=== PATIENT | male | born 2000 | race Two or more races ===

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

== ENCOUNTER 2019-07-10 18:30 | Emergency (ER) | payer OTHER ==
[2019-07-10 18:53] LABS: RAPID STREP SCREEN Negative (Negative)
--- NOTE | 2019-07-10 19:53 | ED Physician Documentation ---
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 He is been sick for 4 days with body aches, runny nose, sore throat and dry cough. No shortness of breath.) Review of Systems Constitutional: reports: Fever, Chills, Myalgias, Fatigue Ears: denies: Ear pain Nose: reports: Rhinorrhea / runny nose Throat: reports: Sore throat Respiratory: reports: Cough. denies: Dyspnea GI: reports: Diarrhea (mild). denies: Vomiting PD PAST MEDICAL HISTORY - Past Medical History Past Medical History: Yes - Past Surgical History Past Surgical History: No - Present Medications Home Medications: Ambulatory Orders Medication Instructions Recorded Confirmed Ibuprofen [Motrin] 800 mg PO Q8H PRN #30 tablet 07/10/19 - Allergies Allergies/Adverse Reactions: Allergies Allergy/AdvReac Type Severity Reaction Status Date / Time No Known Drug Allergies Allergy Verified 09/17/18 17:31 - Social History Does the pt smoke?: No Smoking Status: Never smoker - Immunizations Immunizations are current?: Yes - POLST Patient has POLST: No PD ED PE NORMAL - Vitals Vital signs reviewed: Yes - General General: Alert and oriented X 3, No acute distress - HEENT HEENT: PERRL, EOMI, Ears normal, Moist mucous membranes, Pharynx benign - Neck Neck: Supple, no meningeal sign, No bony TTP - Cardiac Cardiac: RRR, No murmur - Respiratory Respiratory: No respiratory distress, Clear bilaterally - Abdomen Abdomen: Non tender - Back Back: No CVA TTP, No spinal TTP - Derm Derm: Normal color, Warm and dry - Neuro Neuro: Alert and oriented X 3, Normal speech Results - Vitals Vitals: Vital Signs - 24 hr 07/10/19 18:32 Temperature 37.9 C H Heart Rate 100 Respiratory 17 Rate Blood Pressure 135/81 H O2 Saturation 98 Oxygen O2 Source Room air - Labs Labs: Laboratory Tests 07/10/19 18:37 Group A Strep Rapid Negative PD MEDICAL DECISION MAKING - ED course ED course: This is a young man with clinical influenza, and we are having an ongoing outbreak. I am not testing him for the influenza virus specifically because he is at 4 days of illness and Tamiflu treatments would not be effective at this juncture. Continued conservative care was advised and he needs a work note for tomorrow. Departure - Departure Disposition: 01 Home, Self Care Clinical Impression: Influenza Condition: Good Record reviewed to determine appropriate education?: Yes Instructions: ED Flu Prescriptions: Ibuprofen [Motrin] 800 mg PO Q8H PRN #30 tablet PRN Reason: PAIN &/OR FEVER Comments: Return at the end of the weekend if not improved, follow-up with your doctor next week. Return anytime if worse. Forms: Activity restrictions
[2019-07-10 20:02] VITALS: BP 125/82
== END 2019-07-10 20:01 | disposition home or self-care (01) ==
LOC: ED 18:30
DX: J11.1 Influenza due to unidentified influenza virus with other respiratory manifestations (principal)
CPT/HCPCS: 87070; 87430; 99283

== ENCOUNTER 2020-06-26 16:24 | Emergency (ER) | payer OTHER ==
[2020-06-26 16:30] VITALS: BP 105/59
--- NOTE | 2020-06-26 17:03 | XRAY Report ---
PROCEDURE: Ankle 3 View RT INDICATIONS: Trauma TECHNIQUE: 3 views of the ankle were acquired. COMPARISON: None. FINDINGS: Bones: No fractures or dislocations. Ankle mortise is normally aligned. No suspicious bony lesions . Soft tissues: Swelling at the lateral malleolus. No tibiotalar joint effusion. Achilles tendon appe ars normal. IMPRESSION: No acute osseous abnormality. Swelling at the lateral malleolus. Reviewed by: Aldair Hdez MD on 06/26/2020 4:02 PM [facility] Approved by: Aldair Hdez MD on 06/26/2020 4:02 PM [facility] Station ID: [id number]
--- NOTE | 2020-06-26 17:11 | ED Physician Documentation ---
PD HPI LOWER EXT INJURY - Stated complaint Stated Complaint: RIGHT ANKLE PX - Chief complaint Chief Complaint: Trauma Ext - History obtained from History obtained from: Patient - History of Present Illness PD HPI LOW EXT INJURY LOCATION: Right, Ankle Type of injury: Twist Pain level max: 3 Pain level now: 1 Improved by: Rest Worsened by: Moving, Palpating Associated symptoms: No: Weakness, Numbness, Tingling - Additional information Additional information: 20-year-old male presents to the emergency department stating that he twisted his ankle today while playing basketball. Worse with movement, better with rest. He states it is mildly painful to walk on. No other injuries. Review of Systems Constitutional: denies: Fever, Chills Neurologic: denies: Headache PD PAST MEDICAL HISTORY - Past Medical History Past Medical History: No - Past Surgical History Past Surgical History: No - Present Medications Home Medications: Ambulatory Orders Medication Instructions Recorded Confirmed No Known Home Medications 06/26/20 06/26/20 - Allergies Allergies/Adverse Reactions: Allergies Allergy/AdvReac Type Severity Reaction Status Date / Time No Known Drug Allergies Allergy Verified 06/26/20 16:27 - Social History Does the pt smoke?: No Smoking Status: Never smoker - Immunizations Immunizations are current?: Yes - POLST Patient has POLST: No PD ED PE NORMAL - Vitals Vital signs reviewed: Yes - General General: Alert and oriented X 3, No acute distress - HEENT HEENT: Moist mucous membranes - Neck Neck: Supple, no meningeal sign - Derm Derm: Warm and dry - Extremities Extremities: Other (R ankle - TTP over the lateral malleolus. NVI. mild swelling. o/w normal exam of the ankle and foot. ) - Neuro Neuro: Alert and oriented X 3 - Psych Psych: Normal mood, Normal affect Results - Vitals Vitals: Vital Signs - 24 hr 06/26/20 16:28 Temperature 36.8 C Heart Rate 100 Respiratory 19 Rate Blood Pressure 105/59 L O2 Saturation 100 Oxygen O2 Source Room air - Rads (name of study) R ankle xray Radiology: Prelim report reviewed, EMP read contemporaneously, See rad report (no fracture.) PD MEDICAL DECISION MAKING - ED course Complexity details: reviewed results, considered differential, d/w patient ED course: Patient with a right ankle sprain. Placed in a gel splint for comfort. Ambulating well. Patient counseled regarding signs and symptoms for which I believe and urgent re-evaluation would be necessary. Patient with good understanding of and agreement to plan and is comfortable going home at this dale e This document was made in part using voice recognition software. While efforts are made to proofread this document, sound alike and grammatical errors may occur. Departure - Departure Disposition: 01 Home, Self Care Clinical Impression: Right ankle sprain Qualifiers: Encounter type: initial encounter Involved ligament of ankle: unspecified ligament Qualified Code(s): S93.401A - Sprain of unspecified ligament of right ankle, initial encounter Condition: Good Instructions: ED Sprain Ankle Follow-Up: your,doctor in 1 week [Other] Comments: Follow-up with your doctor for further care. Your x-ray does not show any acute abnormalities tonight. You may bear weight as tolerated. Wear the brace for comfort. Discharge Date/Time: 06/26/20 17:19
== END 2020-06-26 17:19 | disposition home or self-care (01) ==
LOC: ED 16:24
DX: S93.401A Sprain of unspecified ligament of right ankle, initial encounter (principal); X50.1XXA Overexertion from prolonged static or awkward postures, initial encounter; Y93.67 Activity, basketball
CPT/HCPCS: 99282; 99283

== ENCOUNTER 2021-06-19 12:06 | Emergency (ER) | payer OTHER ==
[2021-06-19 12:19] VITALS: BP 126/53
--- NOTE | 2021-06-19 13:08 | XRAY Report ---
PROCEDURE: Knee 4 View LT INDICATIONS: Trauma TECHNIQUE: 4 views of the left knee were acquired. COMPARISON: None. FINDINGS: Bones: No fractures or dislocations. No suspicious bony lesions. Soft tissues: There is a small joint effusion. No suspicious soft tissue calcifications. IMPRESSION: 1. No fracture or dislocation. Reviewed by: Anshu Matthews MD on 06/19/2021 12:06 PM [facility] Approved by: Anshu Matthews MD on 06/19/2021 12:06 PM [facility] Station ID: [id number]
--- NOTE | 2021-06-19 13:42 | ED Physician Documentation ---
History of Present Illness - Stated complaint Stated Complaint: L KNEE PX - Chief complaint Chief Complaint: Ext Problem - Additonal information Additional information: 21-year-old male presents emergency department for evaluation of knee pain. Reports a hyperextension injury in January 2021. He initially sought treatment at the [facility] and was advised to take as needed Tylenol or ibuprofen. Since then he has had intermittent pain. It flares every few weeks. Typically will have pain with walking. Does not seem stressed with kneeling. There have been no fevers or swelling. He went back to [facility] last week and they referred him to physical therapy which she has not yet attended. He is here today for a second opinion. Review of Systems Constitutional: reports: Reviewed and negative Ears: reports: Reviewed and negative Nose: reports: Reviewed and negative Throat: reports: Reviewed and negative Cardiac: reports: Reviewed and negative Respiratory: reports: Reviewed and negative Skin: reports: Reviewed and negative Musculoskeletal: reports: Joint pain (left knee) Neurologic: reports: Reviewed and negative Psychiatric: reports: Reviewed and negative PD PAST MEDICAL HISTORY - Past Medical History Past Medical History: Yes Cardiovascular: None Respiratory: None Neuro: None Endocrine/Autoimmune: None GI: None : None HEENT: None Psych: None Musculoskeletal: None Derm: None - Past Surgical History Past Surgical History: No - Present Medications Home Medications: Ambulatory Orders Medication Instructions Recorded Confirmed No Known Home Medications 06/26/20 06/19/21 - Allergies Allergies/Adverse Reactions: Allergies Allergy/AdvReac Type Severity Reaction Status Date / Time No Known Drug Allergies Allergy Verified 06/19/21 12:15 - Social History Does the pt smoke?: No Smoking Status: Never smoker Does the pt drink ETOH?: No Does the pt have substance abuse?: No - Immunizations Immunizations are current?: Yes - POLST Patient has POLST: No PD ED PE EXPANDED - General General: Alert, No acute distress - Extremities Extremities: Left knee (normal flexion/extension. no swellign effusion. no laxity with stress testing. mild tenderness below patella. normal gair) Results - Vitals Vitals: Vital Signs - 24 hr 06/19/21 12:15 Temperature 36.9 C Heart Rate 83 Respiratory 16 Rate Blood Pressure 126/53 L O2 Saturation 98 Oxygen O2 Source Room air - Rads (name of study) left knee Radiology: Final report received (no acute process) PD MEDICAL DECISION MAKING - ED course Complexity details: reviewed results, considered differential, d/w patient ED course: 21-year-old male presents emergency department for evaluation of acute on chronic left knee pain after hyperextension injury in January 2021. Pain occasionally flares. He is not able to describe inciting events. Typically well controlled with Tylenol or ibuprofen. Was referred to physical therapy last week by [facility]. Presents today for second evaluation. X-rays without acute findings. On exam he has very mild tenderness elicited just below the patella. There is no laxity. No proximal tibial tenderness. I have advised patient to continue follow-up with physical therapy. Clinically this is not an exam consistent with a septic arthritis. Given duration of symptoms low suspicion for an occult fracture. If not improved with physical therapy may benefit from referral to orthopedics for MRI. Departure - Departure Disposition: 01 Home, Self Care Clinical Impression: Left knee pain Qualifiers: Chronicity: acute Qualified Code(s): M25.562 - Pain in left knee Condition: Stable Record reviewed to determine appropriate education?: Yes Comments: Ayan the x-ray of your knee does not show any broken bones. You had a hyperextension injury in January and most likely have a knee sprain. You would benefit from physical therapy to help strengthen and support the other ligaments as the injured once heal. Continue to take Tylenol or ibuprofen for any discomfort. If symptoms are not better with physical therapy [facility] may need to make a referral for you to orthopedics.
== END 2021-06-19 13:54 | disposition home or self-care (01) ==
LOC: ED 12:06
DX: M25.562 Pain in left knee (principal); G89.29 Other chronic pain; Z87.828 Personal history of other (healed) physical injury and trauma
CPT/HCPCS: 99282; 99283

== ENCOUNTER 2021-08-16 07:18 | Emergency (ER) | payer OTHER ==
[2021-08-16 07:37] VITALS: BP 124/55
--- NOTE | 2021-08-16 07:54 | ED Physician Documentation ---
PD HPI LOWER EXT INJURY - Stated complaint Stated Complaint: LT KNEE PX - Chief complaint Chief Complaint: Ext Problem - History obtained from History obtained from: Patient - History of Present Illness PD HPI LOW EXT INJURY LOCATION: Left, Knee Type of injury: Twist Where injury occurred: [place] Timing - onset: How many months ago (7) Timing - duration: Months (7) Timing - details: Abrupt onset, Still present, Waxing and waning Improved by: Rest Worsened by: Moving, Palpating Associated symptoms: Other (feeling of instabilty). No: Weakness, Numbness, Tingling, Swelling, Discolored Contributing factors: No: Anticoagulated, Prior ortho surgery Similar symptoms before: Diagnosis (knee sprain) Recently seen: Emergency Dept (last month) - Additional information Additional information: 21-year-old male who originally injured his left knee hyperextension injury playing soccer was initially unable to walk on this injury back in January. He eventually was able to ambulate and periodically has experience pain in his knee since then. Today he is walking and felt a crack or pop following that he felt his knee was unstable and might give out on him. He has not had his knee give out on him previously. He has not have any swelling that I have a specific injury today. He has been through physical therapy and continues to have issue with his knee pain. Today he feels unstable while walking. Review of Systems Constitutional: denies: Fever Throat: denies: Sore throat Respiratory: denies: Cough GI: denies: Vomiting PD PAST MEDICAL HISTORY - Past Medical History Past Medical History: No Cardiovascular: None Respiratory: None Neuro: None Endocrine/Autoimmune: None GI: None : None HEENT: None Psych: None Musculoskeletal: None Derm: None - Past Surgical History Past Surgical History: No - Present Medications Home Medications: Ambulatory Orders Medication Instructions Recorded Confirmed No Known Home Medications 06/26/20 06/19/21 - Allergies Allergies/Adverse Reactions: Allergies Allergy/AdvReac Type Severity Reaction Status Date / Time No Known Drug Allergies Allergy Verified 08/16/21 07:36 - Social History Does the pt smoke?: No Smoking Status: Never smoker Does the pt drink ETOH?: No Does the pt have substance abuse?: No - Immunizations Immunizations are current?: Yes - POLST Patient has POLST: No PD ED PE NORMAL - Vitals Vital signs reviewed: Yes (Normal) - General General: Alert and oriented X 3, No acute distress, Well developed/nourished - HEENT HEENT: Atraumatic, PERRL, EOMI - Respiratory Respiratory: No respiratory distress - Derm Derm: Normal color, Warm and dry, No rash - Extremities Extremities: No deformity, No edema, Other (Examination of the left knee reveals no specific swelling there is some mild tenderness along the medial joint line and the medial joint line opens slightly with valgus forces. Opening is minimal when compared to the right side. Distal neurovascular components intact) - Neuro Neuro: Alert and oriented X 3, disability specialist 2-12 intact, No motor deficit, No sensory deficit, Normal speech Eye Opening: Spontaneous Motor: Obeys Commands Verbal: Oriented GCS Score: 15 - Psych Psych: Normal mood, Normal affect Results - Vitals Vitals: Vital Signs - 24 hr 08/16/21 07:32 Temperature 36.8 C Heart Rate 55 L Respiratory 16 Rate Blood Pressure 124/55 L O2 Saturation 100 Oxygen O2 Source Room air PD MEDICAL DECISION MAKING - ED course Complexity details: reviewed results, re-evaluated patient, considered differential, d/w patient ED course: 21-year-old male with a left knee sprain has some tenderness to the medial joint line and slight opening of the medial joint line with valgus forces. Is diagnosed with a sprain to his knee placed into a knee immobilizer and I have asked the patient to follow-up with orthopedics for consideration of MRI as this injury has been persistent over the past 7 months. Departure - Departure Disposition: 01 Home, Self Care Clinical Impression: Sprain of left knee Qualifiers: Encounter type: initial encounter Involved ligament of knee: medial collateral ligament Qualified Code(s): S83.412A - Sprain of medial collateral ligament of left knee, initial encounter Condition: Stable Instructions: ED Sprain Knee, ED Sprain Knee Collateral Ligaments Follow-Up: MERISSA MCGHEE MD [Primary Care Provider] - Mark Raines MD [Provider Admit Priv/Credential] - Comments: Ayan, it looks like you have sprained your knee and we have placed you into a knee immobilizer to aid in recovery. This injury has plagued you for more than 7 months and the recommendation is to go into see the orthopedic doctor about a potential MRI.
== END 2021-08-16 09:03 | disposition home or self-care (01) ==
LOC: ED 07:18
DX: S83.412A Sprain of medial collateral ligament of left knee, initial encounter (principal); X50.1XXA Overexertion from prolonged static or awkward postures, initial encounter; Y93.66 Activity, soccer
CPT/HCPCS: 99282